=== PATIENT | female | born 1965 | race Caucasian/White ===

== ENCOUNTER 2017-03-31 01:49 | Emergency (ER) | payer OTHER ==
[~2017-03-31] VITALS: Ht 163.8 cm; Wt 100.0 kg
[~2017-03-31 01:49] MED LIST: AUGM875T PO; DIPH50TA PO; PRED20 PO; TYLE500T PO
[2017-03-31 01:54] VITALS: BP 130/81; PULSE 78; RESP 18; TEMP 98.2; O2SAT 98
[2017-03-31] MEDS ORDERED: AUGM875T3 PO (02:14)
[2017-03-31] MEDS ORDERED: TRAM50TA PO (02:14)
[2017-03-31] MEDS ORDERED: IBUPROFEN 800 MG TAB PO ONE (02:15)
[2017-03-31] MEDS ORDERED: AMOXICILLIN/CLAVULANATE K 875 MG TAB PO ONE (02:15)
--- NOTE | 2017-03-31 02:18 | PD ---
HPI Chief Complaint: ENT Complaint Time Seen by Provider: 02:07 Travel History International Travel<30 days: No Contact w/Intl Traveler<30days: No Traveled to known affect area: No History of Present Illness HPI 51-year-old female presents to the emergency department by private transportation for complaint of 9/10 left ear pain. Patient states symptoms began on Wednesday evening. Patient took a dose of acetaminophen this evening without symptomatic relief. Patient did not try ibuprofen. Patient is also has some mild yellow phlegm production. Patient's had minor cough. Patient denies headache, sinus pressure/drainage, sore throat, right ear pain, and does not report any neck stiffness. No voiced report of shortness of breath or chest pain. No voiced complaint nausea, vomiting, abdominal pain, flank pain, dysuria, diarrhea, joint pain, swelling, or skin rash. PFSH Past Medical History Narrative Medical Menopausal, cholecystectomy, tubal ligation; alcohol use; nursing notes reviewed Diminished Hearing: No ?: Not Menopausal: Yes Tubal Ligation: Yes Past Surgical History Cholecystectomy: Yes Social History Alcohol Use: Yes (OCCASIONAL) Tobacco Use: No Substance Use: No Allergies-Medications (Allergen,Severity, Reaction): Coded Allergies: Sulfa (Verified Allergy, Severe, Hives, 12/27/15) Zithromax (Verified Allergy, Severe, 03/31/17) Reported Meds & Prescriptions Reported Meds & Active Scripts Active Tramadol (Tramadol HCl) 50 Mg Tab 50 Mg PO Q6H PRN Augmentin (Amoxicillin-Clavulanate) 875-125 Mg Tab 1 Tab PO BID 10 Days Acetaminophen 500 Mg Tab 500 Mg PO Q6HR PRN Augmentin 875 mg Tab (Amoxicillin & Pot Clavulanate 875 mg Tab) 875 Mg Tab 875 Mg PO BID Deltasone 20 Mg Tab (Prednisone) 20 Mg Tab 40 Mg PO DAILY Diphenhydramine Hcl (Diphenhydramine HCl) 50 Mg Cap 50 Mg PO Q6H PRN Review of Systems Except as stated in HPI: all other systems reviewed are Neg General / Constitutional: No: Fever, Chills HENT: Positive: Earache, No: Headaches, Sore Throat, Congestion Cardiovascular: No: Chest Pain or Discomfort Respiratory: Positive: Cough, No: Shortness of Breath Gastrointestinal: No: Abdominal Pain Genitourinary: No: Flank Pain Musculoskeletal: No: Pain Skin: No Rash Neurologic: No: Weakness Psychiatric: No: Anxiety Hematologic/Lymphatic: No: Lymph Node Enlargement Physical Exam Narrative GENERAL: Well-developed well-nourished female in no acute distress no respiratory distress. SKIN: Warm and dry. HEAD: Normocephalic. EYES: No scleral icterus. No injection or drainage. ENT: Mucous membranes moist airway is patent no posterior pharyngeal erythema edema or exudative change; right external auditory canal and tympanic membrane no redness dullness loss of landmarks or perforation; left external auditory canal erythema without edema and tympanic membrane is red and dull without loss of landmarks or perforation. NECK: Supple, trachea midline. No JVD or lymphadenopathy. CARDIOVASCULAR: Regular rate and rhythm without murmurs, gallops, or rubs. RESPIRATORY: Breath sounds equal bilaterally. No accessory muscle use. GASTROINTESTINAL: Abdomen soft, non-tender, nondistended. MUSCULOSKELETAL: No cyanosis, or edema. BACK: Nontender without obvious deformity. No CVA tenderness. Data Data Last Documented VS Vital Signs Date Time Temp Pulse Resp B/P Pulse Ox O2 Delivery O2 Flow Rate FiO2 03/31/17 02:05 96 16 03/31/17 01:54 98.2 130/81 98 Orders Amoxicil-Clavulanate (Augmentin) (03/31/17 02:15) Ibuprofen (Motrin) (03/31/17 02:15) [facility] Medical Decision Making Medical Screen Exam Complete: Yes Emergency Medical Condition: Yes Medical Record Reviewed: Yes Differential Diagnosis Upper respiratory infection, sinusitis, otitis media, otitis externa Narrative Course Patient identified to have otitis media administered first dose of oral antibiotic and weight-based ibuprofen Patient is stable for outpatient management and follow-up with her primary care provider Patient is encouraged to use ibuprofen/Advil/Motrin every 6-8 hours as needed for pain associated with inflammation or for fever as well as complete course of antibiotic as prescribed use acetaminophen/Tylenol as needed for fever 100.4 F or greater and to take pain medication as prescribed as needed Referrals: Primary Care Physician call for appointment Patient Instructions: General Instructions Additional Instructions: Increase fluid hydration Monitor temperature every 4 hours with thermometer and take as needed acetaminophen/Tylenol for fever 100.4F or greater or for minor pain Take ibuprofen/Advil/Motrin every 6-8 hours as needed for pain associated with inflammation or for fever 100.4F or greater; may take high-dose ibuprofen 600 mg as often as every 6 hours or 800 mg as often as every 8 hours, avoid high- dose ibuprofen for greater than 2-3 days Complete course of antibiotic as prescribed Take pain medication as prescribed as needed be aware that pain medication may impair judgment delay reaction time or increased risk for fall Follow-up with your primary care provider call office in a.m. to schedule follow -up appointment Return to the emergency department for a concerns or change condition Med/Other Pt SpecificInfo: Prescription(s) given Scripts Tramadol 50 Mg Tab50 Mg PO Q6H PRN (PAIN) #10 TAB Ref 0 Prov:Kim Diamond MD 03/31/17 Amoxicillin-Clavulanate (Augmentin)875-125 Mg Tab1 Tab PO BID 10 Days Ref 0 Prov:Kim Diamond MD 03/31/17 Disposition: 01 DISCHARGE HOME Condition: Stable Kim Diamond MD Mar 31, 2017 02:17
== END 2017-03-31 02:33 | disposition home or self-care (01) ==
LOC: PHED 01:49
DX: H66.92 Otitis media, unspecified, left ear (principal); R05 Cough
CPT/HCPCS: 99284

== ENCOUNTER 2017-11-28 16:43 | Emergency (ER) | payer OTHER ==
[~2017-11-28] VITALS: Ht 162.6 cm; Wt 97.0 kg
[~2017-11-28 16:43] MED LIST changes: +AUGM875T3 PO; +TRAM50TA PO
[2017-11-28 16:49] VITALS: BP 139/85; PULSE 92; RESP 16; TEMP 98; O2SAT 97
--- NOTE | 2017-11-28 16:49 | PD ---
HPI Chief Complaint: GI Complaint Time Seen by Provider: 16:48 Travel History International Travel<30 days: No Contact w/Intl Traveler<30days: No Traveled to known affect area: No History of Present Illness HPI 52-year-old female came to the emergency room with history of diarrhea that started last night. Patient says that today the diarrhea has been nonstop and all watery. No blood in it. Each time she has to move her bowels she gets cramps in her lower abdomen followed by the diarrhea. Patient says and last one hour she missed about 7 times. She has been somewhat nauseous but no vomiting. No other sick contacts. Vital signs were stable. [facility] Past Medical History Narrative Medical List of her past medical, surgical, social and family history is reviewed from the nursing note. Diminished Hearing: No Immunizations Current: Yes Menopausal: Yes Tubal Ligation: Yes Past Surgical History Cholecystectomy: Yes Social History Alcohol Use: Yes (OCCASIONAL) Tobacco Use: No (QIT 2004) Substance Use: No Allergies-Medications (Allergen,Severity, Reaction): Coded Allergies: Sulfa (Sulfonamide Antibiotics) (Unverified Allergy, Severe, Hives, ) azithromycin (Unverified Allergy, Severe, 11/28/17) Comments List of allergies reviewed from the nursing note. Reported Meds & Prescriptions Reported Meds & Active Scripts Active Lomotil (Diphenoxylate-Atropine) 2.5-0.025 Mg Tab 1 Tab PO Q6H PRN Tramadol (Tramadol HCl) 50 Mg Tab 50 Mg PO Q6H PRN Augmentin (Amoxicillin-Clavulanate) 875-125 Mg Tab 1 Tab PO BID 10 Days Acetaminophen 500 Mg Tab 500 Mg PO Q6HR PRN Augmentin 875 mg Tab (Amoxicillin & Pot Clavulanate 875 mg Tab) 875 Mg Tab 875 Mg PO BID Deltasone 20 Mg Tab (Prednisone) 20 Mg Tab 40 Mg PO DAILY Diphenhydramine Hcl (Diphenhydramine HCl) 50 Mg Cap 50 Mg PO Q6H PRN Narrative Medication List of her home medications reviewed from the nursing note. Review of Systems Except as stated in HPI: all other systems reviewed are Neg Gastrointestinal: Positive: Diarrhea Physical Exam Narrative GENERAL: Awake, alert, mild distress SKIN: Focused skin assessment warm/dry. HEAD: Atraumatic. Normocephalic. EYES: Pupils equal and round. No scleral icterus. No injection or drainage. ENT: No nasal bleeding or discharge. Dry mucous membrane. NECK: Trachea midline. No JVD. CARDIOVASCULAR: Regular rate and rhythm. No murmur appreciated. RESPIRATORY: No accessory muscle use. Clear to auscultation. Breath sounds equal bilaterally. GASTROINTESTINAL: Abdomen soft, non-tender, nondistended. Hepatic and splenic margins not palpable. MUSCULOSKELETAL: No obvious deformities. No clubbing. No cyanosis. No edema. NEUROLOGICAL: Awake and alert. No obvious cranial nerve deficits. Motor grossly within normal limits. Normal speech. PSYCHIATRIC: Appropriate mood and affect; insight and judgment normal. Data Data Last Documented VS Orders Orders Complete Blood Count With Diff (11/28/17 17:02) Basic Metabolic Panel (Bmp) (11/28/17 17:02) Sodium Chlor 0.9% 1000 Ml Inj (Ns 1000 M (11/28/17 17:15) Diphenoxylate/Atropine Tab (Lomotil Tab) (11/28/17 18:15) Ed Discharge Order (11/28/17 18:06) Labs Laboratory Tests Test 11/28/17 17:15 White Blood Count 7.3 TH/MM3 Red Blood Count 5.07 MIL/MM3 Hemoglobin 14.7 GM/DL Hematocrit 45.0 % Mean Corpuscular Volume 88.6 FL Mean Corpuscular Hemoglobin 28.9 PG Mean Corpuscular Hemoglobin Concent 32.7 % Red Cell Distribution Width 11.4 % Platelet Count 236 TH/MM3 Mean Platelet Volume 9.8 FL Neutrophils (%) (Auto) 60.4 % Lymphocytes (%) (Auto) 33.6 % Monocytes (%) (Auto) 4.0 % Eosinophils (%) (Auto) 1.1 % Basophils (%) (Auto) 0.9 % Neutrophils # (Auto) 4.4 TH/MM3 Lymphocytes # (Auto) 2.4 TH/MM3 Monocytes # (Auto) 0.3 TH/MM3 Eosinophils # (Auto) 0.1 TH/MM3 Basophils # (Auto) 0.1 TH/MM3 CBC Comment DIFF FINAL Differential Comment Blood Urea Nitrogen 17 MG/DL Creatinine 0.79 MG/DL Random Glucose 266 MG/DL Calcium Level 8.9 MG/DL Sodium Level 137 MEQ/L Potassium Level 3.9 MEQ/L Chloride Level 104 MEQ/L Carbon Dioxide Level 26.8 MEQ/L Anion Gap 6 MEQ/L Estimat Glomerular Filtration Rate 77 ML/MIN MDM Medical Decision Making Medical Screen Exam Complete: Yes Emergency Medical Condition: Yes Medical Record Reviewed: Yes Differential Diagnosis Diarrhea, dehydration, electrolyte abnormality Narrative Course 6:09 PM blood test results of back. Patient's glucose is elevated but otherwise rest of the test results are within normal limit. I discussed this with her. Patient said that she used to be on metformin but stopped 2 years ago because it was giving her diarrhea. I've asked her to follow up with her primary care and get started on proper medications. Patient will be discharged home. She was given 1 L of IV fluid bolus and Lomotil. Procedures EKG Prior to Arrival: No Diagnosis Primary Impression: Diarrhea Qualified Codes: R19.7 - Diarrhea, unspecified Additional Impression: Acute hyperglycemia Referrals: Primary Care Physician 2 days Additional Instructions: Return to ER if condition worsens or any other new concerns. Otherwise follow- up with her primary care next couple days. Take the medication as per the prescription direction. Drink lots of fluid. You need to see her primary care in next couple days and address your high blood glucose level. Med/Other Pt SpecificInfo: Prescription(s) given Scripts Diphenoxylate-Atropine (Lomotil) 2.5-0.025 Mg Tab 1 TAB PO Q6H Y for DIARRHEA, #6 TAB 0 Refills Prov: Ronald Duarte MD 11/28/17 Disposition: 01 DISCHARGE HOME Condition: Stable Ronald Duarte MD Nov 28, 2017 16:49
[2017-11-28] MEDS ORDERED: SODIUM CHLOR 0.9% 1000 ML INJ 1,000 ML IV ONE (17:15)
[2017-11-28 17:51] LABS: AUTOMATED NEUTROPHIL # 4.4 TH/MM3 (1.8-7.7); BASOPHIL # 0.1 TH/MM3 (0-0.2); BASOPHIL % 0.9 % (0.0-2.0); EOSINOPHIL # 0.1 TH/MM3 (0-0.4); EOSINOPHIL % 1.1 % (0.0-4.0); HEMOGLOBIN 14.7 GM/DL (11.6-15.3); LYMPH % 33.6 % (9.0-44.0); LYMPHOCYTE # 2.4 TH/MM3 (1.0-4.8); MEAN CELL VOLUME 88.6 FL (80.0-100.0); MEAN CORPUSCULAR HEMOGLOBIN 28.9 PG (27.0-34.0); MEAN CORPUSCULAR HGB CONC 32.7 % (32.0-36.0); MEAN PLATELET VOLUME 9.8 FL (7.0-11.0); MONOCYTE # 0.3 TH/MM3 (0-0.9); NEUT % 60.4 % (16.0-70.0); PLATELET COUNT 236 TH/MM3 (150-450); RED BLOOD COUNT 5.07 MIL/MM3 (4.00-5.30); RED CELL DISTRIBUTION WIDTH 11.4 % (11.6-17.2); WHITE BLOOD COUNT 7.3 TH/MM3 (4.0-11.0)
[2017-11-28 17:55] LABS: BICARBONATE 26.8 MEQ/L (21.0-32.0); CALCIUM 8.9 MG/DL (8.5-10.1)
[2017-11-28 17:58] LABS: CREATININE 0.79 MG/DL (0.50-1.00)
[2017-11-28] MEDS ORDERED: LOMO2.5T PO (18:08)
[2017-11-28] MEDS ORDERED: DIPHENOXYLATE/ATROPINE 2.5 MG/0.025 MG TAB PO ONE (18:15)
== END 2017-11-28 19:05 | disposition home or self-care (01) ==
LOC: PHED 16:43
DX: R19.7 Diarrhea, unspecified (principal); R73.9 Hyperglycemia, unspecified; Z79.899 Other long term (current) drug therapy; Z88.2 Allergy status to sulfonamides; Z88.8 Allergy status to other drugs, medicaments and biological substances
CPT/HCPCS: 80048; 85025; 96360; 99284; J7030